=== PATIENT | female | born 1995 | race Asian ===

== ENCOUNTER 2021-06-16 06:58 | Inpatient (IN) | payer MEDICAID, SELFPAY ==
[2021-06-16] VITALS (15 sets, daily range): BP systolic 126–155; BP diastolic 47–98; PULSE 96–120; RESP 16–18; TEMP 36.9–37; O2SAT 99–100; BMI 73.4
--- NOTE | 2021-06-16 06:58 | LDADM ---
This patient, Scot Mariee, was admitted to Labor/Delivery/Recovery 105 on 06/16/21 at 06:58. Plans for labor, pain management and were discussed with patient. Patient/family oriented to hospital policies and general routines including ID bracelet, bed and alarms, visiting hours, pain management, procedures, bathroom and other care routines, personal items, smoking policy, room service/diet and guest tray routines, infant security routines, and visiting hours. Patient/Family are encouraged to report perceived risks to care and to ask questions if they do not understand what they are told or what they should do. See OBIX for further documentation.
--- NOTE | 2021-06-16 07:05 | PC.NURSE ---
Patient reports SROM occuring at home at 0230. Patient states fluid has been clear in color since time of rupture. Patient reports feeling contractions that began following SROM, patient states contractions are currently every 5 minutes apart. Patient denies any complications with .
[2021-06-16] MEDS: AMPICILLIN 2 GM/NS 100 ML 2 GM/100 ML BAG IVPB (07:53)
[2021-06-16] MEDS: LACTATED RINGERS 1,000 ML 125 ML IV CONT (07:54)
[2021-06-16 08:10] LABS: Basophils Absolute Auto 0.1 K/mm3 (0.0-0.1); Basophils Percent Auto 0.4 % (0.2-1.2); Eosinophils Percent Auto 0.2 % (0-4.4); Hematocrit 36.7 % (37.0-47.0); Hemoglobin 11.7 g/dL (12.0-15.0); Immature Granulocyte Absolute 0.35 K/mm3 (0.00-0.031); Immature Granulocyte Percent A 2.8 % (0-0.5); Lymphocytes Absolute Auto 1.44 K/mm3 (0.9-3.2); Lymphocytes Percent Auto 11.7 % (18.3-44.2); Mean Corpuscular HGB Conc 31.9 g/dl (32-36); Mean Corpuscular Hemoglobin 28.1 pg (26-34); Mean Platelet Volume 9.6 fl (7.4-10.4); Monocytes Absolute Auto 0.6 K/mm3 (0.1-0.6); Monocytes Percent Auto 5.2 % (2.6-8.5); Neutrophils Absolute Auto 9.8 K/mm3 (1.3-6.7); Neutrophils Percent Auto 79.7 % (45.5-73.1); Platelet Count Result 258 k/mm3 (150-375); Red Blood Count 4.17 M/mm3 (4.2-5.4); Red Cell Distribution Width 15.8 % (11.5-14.5); White Blood Count 12.3 K/mm3 (4.5-10.0)
[2021-06-16 08:20] LABS: Alanine Aminotransferase 15 U/L (4-35); Albumin Level 3.8 g/dL (3.5-5.1); Alkaline Phosphatase 190 U/L (38-126); Anion Gap 10 mmol/L (8-16); Aspartate Amino Transferase 21 U/L (14-36); Bilirubin,Total 0.3 mg/dL (0.2-1.3); Blood Urea Nitrogen 5 mg/dL (7-17); Calcium 9.5 mg/dL (8.4-10.2); Carbon Dioxide 20 mmol/L (22-30); Chloride 107 mmol/L (98-107); Estimated CRCL calculation 296 ml/min; Estimated Glomerular Filt Rate > 60; Glucose 125 mg/dL (65-110); Sodium 137 mmol/L (137-145)
[2021-06-16 08:52] LABS: Rapid Plasma Reagin Non-Reactive (NonReactive)
[2021-06-16 09:01] LABS: HIV 1/2 Ab P24 Ag Result Negative (Negative)
--- NOTE | 2021-06-16 09:13 | PM.IMHP ---
H&P: HPI History of Present Illness Date/Time: 06/16/21 09:13 Chief Complaint: Intrauterine at term SROM Narrative: 26 yo G1 at 38w3d who presents with SROM. Pt reports regular contractions. SHe endorses good movement. She denies any abdominal pain, fever, chills. Pt was a late transfer of care at 32 wks. overall uncomplicated. Review of Systems Cardiovascular: Cardiovascular: Denies chest pain, Denies leg edema, Denies palpitations, Denies dyspnea and Denies dyspnea on exertion Respiratory: Respiratory: Denies cough, Denies dyspnea and Denies dyspnea on exertion Gastrointestinal: Gastrointestinal: Denies abdominal pain, Denies constipation, Denies diarrhea, Denies nausea and Denies vomiting Genitourinary: Genitourinary: Denies hematuria, Denies urinary frequency, Denies dysuria, Denies pelvic pain, Denies urinary incontinence and Denies vaginal discharge Neurologic: Reports system reviewed and no additional complaints, except as documented Psychiatric: Psychiatric: Reports no additional psychiatric complaints Endocrine: Endocrine: Denies palpitations [facility] Family History Family History (Updated 06/09/21 @ 08:18 by Francisco Brady RN) Father Heart problem Diabetes mellitus Hypertension Social History Social History Smoking status: Never smoker Second hand tobacco smoke exposure: No Substance use: never Spiritual care concerns: No Meds Home Medications and Allergies Home Medications Medication Instructions Recorded Confirmed Type [id number] fum-folic ac-om3 1 pkg PO DAILY 06/16/21 06/16/21 History [Daily ] Allergies Allergy/AdvReac Type Severity Reaction Status Date / Time No Known Allergies Allergy Verified 06/16/21 07:28 Vital Signs Vital Signs - 24 hr 06/16/21 07:31 06/16/21 08:39 06/16/21 08:46 Pulse Rate 102 H 96 100 Blood Pressure 128/83 135/83 136/77 06/16/21 09:01 Pulse Rate 97 Blood Pressure 144/87 H Exam Const: General: no acute distress Eyes: EOM: EOMs intact bilaterally Neck: Neck: supple Thyroid: thyroid normal Chest: Breast/axilla inspection: normal inspection of the breasts Breast/axilla palpation: normal palpation of the breasts, normal palpation of the axillae and no axillary lymphadenopathy Resp: Effort & Inspection: normal respiratory effort Auscultation: clear to auscultation bilaterally Cardio: Rate: regular rate Rhythm: regular rhythm GI: Inspection: non-distended and other (Gravid) GI Palp: Yes Soft to palpation, No Tenderness to palpation present (GI) and No Guarding due to palpation present (GI) Auscultation: normal bowel sounds : Speculum Exam - Vagina: No vaginal bleeding OB/external & speculum: external exam normal; No vaginal bleeding Skin: General skin exam: normal color and no rashes or lesions noted Neuro: Cognition (Neuro): normal cognition Speech: normal speech Extrem: General: normal to inspection Psych: Mental Status: mental status grossly normal Affect: normal affect H&P: Results Labs Labs: Short CBC 06/16/21 Range/Units 07:50 WBC 12.3 H (4.5-10.0) K/mm3 Hgb 11.7 L (12.0-15.0) g/dL Hct 36.7 L (37.0-47.0) % Plt Count 258 (150-375) k/mm3 BMP 06/16/21 07:50 Sodium 137 Potassium 4.0 Chloride 107 Carbon Dioxide 20 L BUN 5 L Creatinine 0.40 L Glucose 125 H Calcium 9.5 Liver Function 06/16/21 Range/Units 07:50 Total Bilirubin 0.3 (0.2-1.3) mg/dL AST 21 (14-36) U/L ALT 15 (4-35) U/L Alkaline Phosphatase 190 H (38-126) U/L Albumin 3.8 (3.5-5.1) g/dL Assessment and Plan Assessment and plan (1) Supervision of high risk , unspecified, third trimester: Code(s): O09.93 - Supervision of high risk , unspecified, third trimester Status: Acute Assessment and Plan: 26 yo G1 at 38w3d SROM admit to L&D routine admission orders Rh+ GBS neg labs wnl e
[2021-06-16] MEDS: OXYTOCIN 30 UNITS/NS 500 ML 30 UNITS/500 ML BAG 999 UNITS IV CONT (11:20)
--- NOTE | 2021-06-16 11:32 | P.PCNOB_ITS ---
OB - Delivery Note Procedure Delivery date: 06/16/21 Induction method: None Delivery monitor: External FHT Route of delivery: Laceration Description: Perineal - 2nd Degree and Vaginal (r lateral) Delivery repair: vicryl Quantitative Blood Loss (ml): 359 Anesthesia type: Local Disposition: Floor [place] Baby Date of : 06/16/21 Time of : 11:16 Weeks of gestation at delivery: 38 gender: Female position: Right Occiput Anterior Placenta delivery description: Spontaneous Cord Vessel Description: 3 Vessels score one minute: 9 score five minutes: 9
[2021-06-16] MEDS: OXYTOCIN 30 UNITS/NS 500 ML 30 UNITS/500 ML BAG 125 UNITS IV CONT (11:58)
[2021-06-16] MEDS: METHYLERGONOVINE MALEATE 0.2 MG/ML VIAL (11:58)
--- NOTE | 2021-06-16 15:10 | PC.NURSE ---
Pt's came out to the desk asking for a nipple shield due to pain during nursing. Glo Scott RN, support nurse notified and will go in and see patient and talk to her about position and latch. See notes from Glo Huerta RN.
[2021-06-16] MEDS: IBUPROFEN 600 MG TABLET PO (22:53)
[2021-06-17 00:05] VITALS: BP 122/73; PULSE 115; RESP 18; TEMP 37; O2SAT 99
[2021-06-17 04:22] VITALS: BP 112/68; PULSE 96; RESP 18; TEMP 36.3; O2SAT 99
[2021-06-17 06:03] LABS: Basophils Percent Auto 0.3 % (0.2-1.2); Eosinophils Percent Auto 0.3 % (0-4.4); Hematocrit 27.5 % (37.0-47.0); Hemoglobin 8.7 g/dL (12.0-15.0); Immature Granulocyte Absolute 0.29 K/mm3 (0.00-0.031); Immature Granulocyte Percent A 2.1 % (0-0.5); Lymphocytes Absolute Auto 2.45 K/mm3 (0.9-3.2); Lymphocytes Percent Auto 18.1 % (18.3-44.2); Mean Corpuscular HGB Conc 31.6 g/dl (32-36); Mean Corpuscular Hemoglobin 28.2 pg (26-34); Mean Corpuscular Volume 89.3 fl (80-100); Mean Platelet Volume 9.9 fl (7.4-10.4); Monocytes Percent Auto 7.6 % (2.6-8.5); Neutrophils Absolute Auto 9.7 K/mm3 (1.3-6.7); Neutrophils Percent Auto 71.6 % (45.5-73.1); Platelet Count Result 235 k/mm3 (150-375); Red Blood Count 3.08 M/mm3 (4.2-5.4); Red Cell Distribution Width 15.8 % (11.5-14.5); White Blood Count 13.6 K/mm3 (4.5-10.0)
--- NOTE | 2021-06-17 07:46 | PM.OBPNVD ---
OB - PN: Subj Subjective Date/time seen: 06/17/21 07:46 Patient comments: no complaints and pain well controlled baby status: doing well and nursing well OB - PN: Obj Data Labs CBC & Chem 7: 06/17/21 04:03 06/16/21 07:50 Labs: Laboratory Results - last 24 hr 06/16/21 06/16/21 06/16/21 07:50 07:50 07:50 WBC 12.3 H RBC 4.17 L Hgb 11.7 L Hct 36.7 L MCV 88.0 MCH 28.1 MCHC 31.9 L RDW 15.8 H Plt Count 258 MPV 9.6 Immature Gran % (Auto) 2.8 H Neut % (Auto) 79.7 H Lymph % (Auto) 11.7 L [place] % (Auto) 5.2 Eos % (Auto) 0.2 Baso % (Auto) 0.4 Lymph # (Auto) 1.44 [place] # (Auto) 0.6 Eos # (Auto) 0.0 Baso # (Auto) 0.1 Abs Immat Gran (auto) 0.35 H Absolute Neuts (auto) 9.8 H Absolute Nucleated RBC 0.0 Nucleated RBC % 0.0 Sodium 137 Potassium 4.0 Chloride 107 Carbon Dioxide 20 L Anion Gap 10 BUN 5 L Creatinine 0.40 L Estim Creat Clear Calc 296 Estimated GFR > 60 Glucose 125 H Uric Acid 5.0 Calcium 9.5 Total Bilirubin 0.3 AST 21 ALT 15 Alkaline Phosphatase 190 H Total Protein 7.0 Albumin 3.8 RPR Non-reactive HIV 1&2 Ab/P24 Ag 4thGn Blood Type Antibody Screen 06/16/21 06/16/21 06/17/21 07:50 07:50 04:03 WBC 13.6 H RBC 3.08 L Hgb 8.7 L D Hct 27.5 L MCV 89.3 MCH 28.2 MCHC 31.6 L RDW 15.8 H Plt Count 235 MPV 9.9 Immature Gran % (Auto) 2.1 H Neut % (Auto) 71.6 Lymph % (Auto) 18.1 L [place] % (Auto) 7.6 Eos % (Auto) 0.3 Baso % (Auto) 0.3 Lymph # (Auto) 2.45 [place] # (Auto) 1.0 H Eos # (Auto) 0.0 Baso # (Auto) 0.0 Abs Immat Gran (auto) 0.29 H Absolute Neuts (auto) 9.7 H Absolute Nucleated RBC 0.0 Nucleated RBC % 0.0 Sodium Potassium Chloride Carbon Dioxide Anion Gap BUN Creatinine Estim Creat Clear Calc Estimated GFR Glucose Uric Acid Calcium Total Bilirubin AST ALT Alkaline Phosphatase Total Protein Albumin RPR HIV 1&2 Ab/P24 Ag 4thGn Negative Blood Type A Positive Antibody Screen Negative OB - PN A/P Plan day: 1 Plan: routine care Time Spent With Patient Time: Total time spent is greater than 50% in coordination of care (as documented) at patient's floor/unit and/or counseling patient: Time with patient: less than 15 minutes Review of Systems Review of Systems: All systems reviewed & are unremarkable except as noted in HPI and below Exam Const: General: no acute distress Eyes: General: appearance normal, both eyes and all related structures Neck: Neck: supple and no JVD Thyroid: thyroid normal Resp: Effort & Inspection: normal respiratory effort Auscultation: clear to auscultation bilaterally Cardio: Rate: regular rate Rhythm: regular rhythm GI: Inspection: non-distended GI Palp: Yes Soft to palpation, No Tenderness to palpation present (GI) and No Guarding due to palpation present (GI) Auscultation: normal bowel sounds : General: Yes bladder normal to palpation External Female Exam: normal external appearance Speculum Exam - Vagina: normal vaginal discharge and No vaginal bleeding Speculum Exam - Cervix: nontender Bimanual exam- vagina & uterus: bladder normal to palpation and No Cervical tenderness present OB/external & speculum: No vaginal bleeding Skin: General skin exam: no rashes or lesions noted Extrem: General: normal to inspection and no edema Psych: Mental Status: mental status grossly normal Affect: normal affect
[2021-06-17 08:10] VITALS: BP 106/61; PULSE 100; RESP 16; TEMP 37.2; O2SAT 98
--- NOTE | 2021-06-17 08:52 | PC.NURSE ---
On 06/16/2021 @ [id number] - [id number] Introductions were made and mother desires to breastfeed. Mother works well with encouragement holding and positioing her . Reviewed good handwashing when working with , breast, nipples and how to protect the nipples with a deep latch. Encouraged understanding the benefits of skin to skin, responding to feeding cues, frequencies of feeding 8-12 times in 24 hours (approximately 2-3 hours), duration of feedings, milk production, intake/output feeding sheet and signs of adequate intake. Discussed stimulating infant with skin to skin, hand expressing colostrum, touch and talking to to encourage eating at the breast. Reviewed positioning and alignment, supporting breast, off-centered (asymmetrical latch) and leading with the chin with big open wide gape. Infant latched optimally to the left breast in football position. Education given to mother of how to visualize suck/swallow ratios and drinking at the breast. was able to maintain latch without discomfort to mother. Nipple care reviewed with positioning and optimal latching. Resources used to facilitate learning were used from the visual handouts. Mother voiced understanding responding to feeding cues, may need to stimulating approximately 2-3 hours from the start of the last feeding, calling for assistance if the does not latch or there discomfort . Reported to primary RN.
--- NOTE | 2021-06-17 15:56 | PC.NURSE ---
[id number] Consulted with patient to assess needs related to . Mother led conversation with her experience with feeding baby so far. Reviewed good handwashing when working with infant, breast, nipples and how to protect the nipples with a deep latch. Reinforced education of the benefits of skin to skin, responding to feeding cues, frequencies of feeding 8-12 times in 24 hours (approximately 2-3 hours), duration of feedings, milk production, intake/output feeding sheet and signs of adequate intake. Discussed stimulating with skin to skin, hand expressing colostrum, touch and talking to infant to encourage eating at the breast. Reviewed positioning and alignment, supporting breast, off-centered (asymmetrical latch) and leading with the chin with big open wide gape. Mother led conversation regarding her decision to formula/bottle feed her infant. Last feeding was 2 oz. Mother states her nipples are tender with latching. Reinforced education regarding working with on optimal latching and good positioning. Resources used to facilitate learning were used from the visual handouts/mom and baby guide. Mother voiced understanding responding to feeding cues, may need to stimulating approximately 2-3 hours from the start of the last feeding, calling for assistance if the infant does not latch or there discomfort . Reported to primary RN.
[2021-06-17] MEDS: DOCUSATE SODIUM 100 MG CAPSULE PO (18:58)
[2021-06-17] MEDS: POLYSACCHARIDE IRON COMPLEX 150 MG CAPSULE PO (18:58)
[2021-06-17 20:00] VITALS: BP 130/77; PULSE 99; RESP 16; TEMP 36.3; O2SAT 98
--- NOTE | 2021-06-18 07:21 | PM.DS ---
DS: Admitting Diagnosis Discharge Date 06/18/2021 Admitting Diagnosis Term in active labor DS: Summary Hospital Course Hospital Course: Patient was admitted in active labor and underwent spontaneous vaginal delivery. Her hospital course unremarkable. She remained afebrile. She was up, voiding without difficulty, ambulating, generally without complaints Time Spent with Patient Time attestation: Total time spent providing and/or coordinating discharge services: Exam Const: General: no acute distress Eyes: General: appearance normal, both eyes and all related structures Neck: Neck: supple and no JVD Thyroid: thyroid normal Resp: Effort & Inspection: normal respiratory effort Auscultation: clear to auscultation bilaterally Cardio: Rate: regular rate Rhythm: regular rhythm GI: Inspection: non-distended GI Palp: Yes Soft to palpation, No Tenderness to palpation present (GI) and No Guarding due to palpation present (GI) Auscultation: normal bowel sounds : General: Yes bladder normal to palpation External Female Exam: normal external appearance Speculum Exam - Vagina: normal vaginal discharge and No vaginal bleeding Speculum Exam - Cervix: nontender Bimanual exam- vagina & uterus: bladder normal to palpation and No Cervical tenderness present OB/external & speculum: No vaginal bleeding Skin: General skin exam: no rashes or lesions noted Extrem: General: normal to inspection and no edema Psych: Mental Status: mental status grossly normal Affect: normal affect Discharge Plan Discharge Attending physician on discharge: Marcin Haas Discharging Clinician: Marcin Haas Patient Disposition: Home, Self-Care Activity: may shower, no driving, may drive after 2 weeks and pelvic rest Diet: heart healthy Wound Care Instructions: follow printed instructions Patient Instructions: Antibiotic Form Stand Alone Forms: General Discharge Information Follow-up/Referrals: Marcin Haas MD [Physician] - William Mccall MD [Physician] - Discharge Medications: Continued Daily [id number] mg-mcg-mg Combo Pack 1 pkg PO DAILY RF: 0 Date of admission: 06/16/21 06:58 Primary Care Provider: PHYSICIAN,MEDICAL OFFICE SPECIALIST Admitting Provider: William Mccall Attending physician on admission: William Mccall Condition: Stable
--- NOTE | 2021-06-18 07:24 | PM.OBPNVD ---
OB - PN: Subj Subjective Date/time seen: 06/18/21 07:24 Patient comments: no complaints and pain well controlled baby status: doing well OB - PN: Obj Data Labs CBC & Chem 7: 06/17/21 04:03 06/16/21 07:50 OB - PN A/P Plan day: 2 Plan: routine care, discharge home and follow up 6 weeks Time Spent With Patient Time: Total time spent is greater than 50% in coordination of care (as documented) at patient's floor/unit and/or counseling patient: Time with patient: less than 15 minutes Review of Systems Review of Systems: All systems reviewed & are unremarkable except as noted in HPI and below Exam Const: General: no acute distress Eyes: General: appearance normal, both eyes and all related structures Neck: Neck: supple and no JVD Thyroid: thyroid normal Resp: Effort & Inspection: normal respiratory effort Auscultation: clear to auscultation bilaterally Cardio: Rate: regular rate Rhythm: regular rhythm GI: Inspection: non-distended GI Palp: Yes Soft to palpation, No Tenderness to palpation present (GI) and No Guarding due to palpation present (GI) Auscultation: normal bowel sounds : General: Yes bladder normal to palpation External Female Exam: normal external appearance Speculum Exam - Vagina: normal vaginal discharge and No vaginal bleeding Speculum Exam - Cervix: nontender Bimanual exam- vagina & uterus: bladder normal to palpation and No Cervical tenderness present OB/external & speculum: No vaginal bleeding Skin: General skin exam: no rashes or lesions noted Extrem: General: normal to inspection and no edema Psych: Mental Status: mental status grossly normal Affect: normal affect
[2021-06-18 08:10] VITALS: BP 128/86; PULSE 103; RESP 18; TEMP 36.6; O2SAT 100
[2021-06-18] MEDS: POLYSACCHARIDE IRON COMPLEX 150 MG CAPSULE PO (08:31)
[2021-06-18] MEDS: DOCUSATE SODIUM 100 MG CAPSULE PO (08:31)
[2021-06-18] MEDS: MULTIVIT/MIN/PREN/FOL AC/IRON TABLET 1 TAB PO (08:32)
--- NOTE | 2021-06-18 08:52 | PC.NURSE ---
Discharge teaching provided regarding transition from colostrum to milk. d/c resources provided. Mother had in cradle hold with shallow latch visualized. Demonstrated cross cradle position and pt was able to achieve deeper more comfortable latch. Mother states she plans to continue to pump every 3 hours and supplement with formula after breastfeedings. has had 8 voids and 9 stools since . Serum bili pending at this time. Peds entering room for discharge instructions. Mother verbalized understanding of all info provided and has no questions at this time. Mother states nipples are tender and lanolin provided.
--- NOTE | 2021-06-18 10:45 | PC.NURSE ---
Patient viewed the discharge video Mother & Baby Care, The First Two Weeks . Patient was given the opportunity and encouraged to ask questions. Patient verbalized understanding of information shared and has been given the mother/baby guide for home reference.
[2021-06-19 10:20] VITALS: BP 132/89; PULSE 96; RESP 20; TEMP 37.4; O2SAT 100
== END 2021-06-18 11:38 | disposition home or self-care (01) | DRG 560 ==
LOC: ANHOB2 06-18 10:01 → ANHLDR 06-19 11:01 → ANHOB2 06-19 11:01
PROVIDERS: Obstetrics & Gynecology; Admitting Provider Student in an Organized Health Care Education/Training Program; Visit Provider Obstetrics & Gynecology
DX: O69.2XX0 Labor and delivery complicated by other cord entanglement, with compression, not applicable or unspecified (principal); O70.1 Second degree perineal laceration during delivery; Z3A.38 38 weeks gestation of pregnancy; Z37.0 Single live birth
CPT/HCPCS: 36415; 80053; 84112; 84550; 85025; 86592; 86703; 86850; 86900; 86901; A9270; G0432; J0290; J2210; J2590; J7120

== ENCOUNTER 2023-06-16 00:29 | Day surgery (SDC) | payer OTHER, SELFPAY ==
[2023-06-15 11:26] VITALS: BMI 26.6
--- NOTE | 2023-06-15 11:30 | PC.NURSE ---
Report to the Outpatient Waiting Room, entrance under the green pavilion located off [facility], at time 0630 on date 06/16/23. Planned Procedure Time: 0830. Time changes happen often and if your time is changed the preop area will call you the afternoon before. - You and your visitor will be asked to self-screen and do not enter if you have any COVID symptoms. - A mask is optional within the hospital at this time. Patients may have clear liquids (water, carbonated beverages, clear teas, apple juice) until 3 hours prior to surgery with a maximum of 20 ounces. - No food from midnight until time of surgery Take the following medications with a SIP of water the morning of surgery: NONE DO NOT STOP ANY OF YOUR OTHER PRESCRIPTION MEDICATIONS PRIOR TO SURGERY ?EXCEPT THE FOLLOWING Medications to discontinue per physician: VITAMINS Date to take last dose: NO MORE UNTIL AFTER SURGERY Please no make-up, nail belgian, hairspray, perfume, deodorant, or body powder the day of surgery. No jewelry (including any body piercings) or valuables the day of surgery, leave them at home. Please take a shower or bath the night before, or the morning of, surgery with an antibacterial soap. Wear comfortable, loose fitting clothing. - Jewelry must be removed prior to entering the operating room. Rings and piercings that are not removed may be cut off. - The hospital will not accept responsibility for valuables. - Please leave all valuables, including medications, at home the day of surgery. If you are going home after surgery, a licensed bull driver must drive you home. - NO public transportation without another adult if you receive anesthesia. - We recommend that an adult stay with you for 24 hours following discharge. - We also recommend that you do not drive, make important decision, drink alcoholic beverages, or take any drugs that were not prescribed by your health care provider for at least 24 hours after your discharge time. Follow any additional instructions given to you from your surgeon. If you or anyone in your household have experienced Covid symptoms in the past week, please notify your surgeon or the nurse liaison at the phone number below for possible testing. Telephone instructions given to GREGOR YE and asked if any additional questions and then verbalized understanding. Patient advised to call surgeon office or pre surgery nurse liaison [phone] if any additional questions.
--- NOTE | 2023-06-15 13:24 | PM.IMHP ---
H&P: HPI History of Present Illness Date/Time: 06/15/23 13:24 Chief Complaint: First trimester missed Narrative: 28-year-old 2 para 1 in her 1st trimester with serial ultrasounds showing no growth and no findings. Uterus has a sac measuring about 8 half weeks gestation which has not grown over week and fails to show presents. Risks and benefits reviewed in great detail. Suction dilatation curettage. She had all questions answered and asked to proceed PMFSH Family History Family History Father Heart problem Diabetes mellitus Hypertension Social History Social History Smoking status: Never smoker Second hand tobacco smoke exposure: No Alcohol intake: never Substance use: never Substance use type: does not use Living arrangements: with family Spiritual care concerns: No Meds Home Medications and Allergies Home Medications Medication Instructions Recorded Confirmed Type vits 75-iron 28 mg-folic 1 pkg PO DAILY 06/16/21 06/15/23 History acid 800 mcg-omega3 440 mg oral pack Allergies Allergy/AdvReac Type Severity Reaction Status Date / Time No Known Allergies Allergy Verified 06/15/23 11:26 Exam Const: General: cooperative, healthy appearing, comfortable and overweight Orientation/consciousness: oriented to person, oriented to place and oriented to time Resp: Effort & Inspection: normal respiratory effort Cardio: Rate: regular rate Rhythm: regular rhythm Heart sounds: S1 normal heart sound present and S2 normal heart sound present GI: Inspection: normal to inspection : External Female Exam: normal external appearance Speculum Exam - Vagina: normal appearance of the vagina Speculum Exam - Cervix: normal appearance of the cervix Bimanual exam- vagina & uterus: enlarged Bimanual Exam- Adnexa, other: normal adnexae Assessment and Plan Assessment and plan (1) Missed : Code(s): O02.1 - Missed Status: Acute Plan Suction dilatation curettage
--- NOTE | 2023-06-16 05:35 | WPDHPUPDATE1 ---
History and Physical Update Update Date/Time: 06/16/23 05:35 History and Physical has been reviewed, including an updated exam of the patient. There are NO changes in the patient's condition. Risks, benefits, and alternatives have been discussed and questions answered. Patient agrees to proceed with procedure.
[2023-06-16 06:45] VITALS: BP 114/71; PULSE 86; RESP 16; TEMP 36.6; O2SAT 99
[2023-06-16] MEDS: ACETAMINOPHEN 500 MG TABLET 1000 MG PO (07:20)
[2023-06-16] MEDS: LACTATED RINGERS 1,000 ML 30 ML IV CONT (07:25)
--- NOTE | 2023-06-16 07:36 | WPDANESEPPF ---
Anes - Initial Pre Proc Eval Procedure: Operation Date: 06/16/23 08:30 Proposed Procedures p Suction Dilation and Curettage - Marcin Garcia MD Date/Time: 06/16/23 07:36 Surgeon: Marcin Garcia MD Pre Op Diagnosis: Missed Ab Patient Data Age: 28 Gender: F Height: 1.63 m Weight: 70.3 kg Allergies Allergy/AdvReac Type Severity Reaction Status Date / Time No Known Allergies Allergy Verified 06/15/23 11:26 Home Medications Medication Instructions Recorded Confirmed Type vits 75-iron 28 mg-folic 1 pkg PO DAILY 06/16/21 06/15/23 History acid 800 mcg-omega3 440 mg oral pack hydrocodone 5 mg-acetaminophen 325 1 tablet PO Q4H PRN pain #14 tabs 06/16/23 Rx mg tablet Patient hx anesthesia problems: none Family hx anesthesia problems: none Results Review: All pre-operative results and documents have been reviewed as part of the pre-operative evaluation. [facility] Family History Family History Father Heart problem Diabetes mellitus Hypertension Social History Social History Smoking status: Never smoker Second hand tobacco smoke exposure: No Alcohol intake: never Substance use: never Substance use type: does not use Living arrangements: with family Spiritual care concerns: No Anes - Eval Final PreProcedure Day of Procedure 06/16/23 07:36 Patient weight: normal Heart: regular rate and rhythm Lungs: clear to auscultation Airway: Mallampati scale class II Neurological: alert and oriented Last oral intake: >/= 8 hours ASA classification: II Emergent: no Anesthetic plan: proceed Anesthesia type and monitoring: general GIVS and standard monitoring Results Review: All pre-operative results and documents have been reviewed as part of the pre-operative evaluation. Informed Consent: The patient's anesthetic plan and its attendant risks and benefits were discussed with the patient/family/POA. Questions were solicited and answers provided to the satisfaction of the patient/family/POA.
[2023-06-16] MEDS: LIDOCAINE HCL 1% LOCAL INJ 10 ML VIAL INFILTRATE (07:55)
[2023-06-16 08:01] VITALS: BP 86/51; PULSE 75; RESP 12; O2SAT 98
--- NOTE | 2023-06-16 08:02 | P.OP_ITS ---
Procedure Note - Detailed Date of Procedure 06/16/23 Pre-op Diagnosis Missed Ab Post-op Diagnosis Same Procedure Performed Dilatation curettage Surgeon Marcin Garcia MD Anesthesia MAC and Local Indications this is a 28-year-old multiparous patient with a first-trimester missed A/B Findings uterus sounded to 10cm. Tissue consistent with products consent Description of Procedure patient was prepped draped in the normal sterile fashion placed in the dorsal lithotomy position. Under excellent IV sedation weighted speculum placed in posterior fornix vagina. Anterior lip of the cervix grasped with single-tooth tenaculum. 2.5cc 1% xylocaine anesthesia placed at 2, 4, 8, 10:00 a.m. of the cervix. Uterus sounded 10cm. Serial dilatation with fragmented dilators performed followed by passage of the 10. Curved suction curette a large amount of tissue was removed. Once a good grating sound was heard the instruments were withdrawn paid. The patient was awakened went to recovery in satisfactory co ndition. All sponge, needle counts correct. There were no immediate complications. She did not require RhoGAM issues are it positive Estimated Blood Loss 150 Drains No Packing No Pathology Yes Complications No immediate complications Condition Stable Disposition PACU
[2023-06-16 08:30] VITALS: BP 103/65; PULSE 71; RESP 14; O2SAT 100
[2023-06-16 08:53] VITALS: BP 119/66; PULSE 77; RESP 14
== END 2023-06-16 08:58 | disposition home or self-care (01) ==
PROVIDERS: PCP Hospitalist; Visit Provider Obstetrics & Gynecology
PROC: (CPT 59820; principal; 2023-06-16 08:30)
DX: O02.1 Missed abortion (principal); Z79.891 Long term (current) use of opiate analgesic; Z82.49 Family history of ischemic heart disease and other diseases of the circulatory system
CPT/HCPCS: 59820; 88305; A9270; J2250; J2704; J3010; J7120

== ENCOUNTER 2024-03-15 09:29 | Outpatient (CLI) | payer OTHER, SELFPAY ==
[2024-03-16 13:43] LABS: Beta-2-Microglobulin 1.62 mg/L (< OR = 2.51)
[2024-03-18 03:13] LABS: Anti Cardio Antibody IgM 2.2 MPL-U/mL; Anti Cardiolipin Antibody IgA <2.0 APL-U/mL; Anti Cardiolipin Antibody IgG 2.1 GPL-U/mL
[2024-03-19 20:23] LABS: Lupus dRVVT Screen 33 sec (< OR = 45); PTT-LA Screen 32 sec (< OR = 40)
[2024-03-23 12:33] LABS: Reference Lab Test Name B2 Glyco IgG IgM
== END 2024-03-15 09:30 | disposition home or self-care (01) ==
LOC: ANHLAB 09:31
PROVIDERS: PCP Hospitalist; Visit Provider Obstetrics & Gynecology
DX: N96 Recurrent pregnancy loss (principal)
CPT/HCPCS: 36415; 82232; 85613; 85730; 86147; 88264

== ENCOUNTER 2025-02-06 13:41 | Outpatient (CLI) | payer OTHER, SELFPAY ==
[2025-02-06 14:47] LABS: Hematocrit 38.7 % (37.0-47.0); Hemoglobin 12.6 g/dL (12.0-15.0)
--- OUTSIDE RECORDS SUMMARY | 2025-02-07 13:02 | XMS_ITS | Clinical Summary ---
Author Organization [facility] Address [address] [address] Phone Care Team Providers Care Simulation Analyst Name Role Phone Omar Neville MD Primary Care Provider [phone] Allergies No known active allergies Medications cetirizine (ZyrTEC) 10 mg tablet Take 1 tablet (10 mg total) by mouth daily as needed for allergies 90 tablet 4 4 025 Active azelastine (OPTIVAR) 0.05 % ophthalmic solutionIndication s:Allergic Conjunctivitis Administer 1 drop into both eyes 2 (two) times a day 6 mL 1 4 Active Active Problems Problem Noted Date Diagnosed Date Influenza vaccine needed 02/13/2024 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 Assessment & Plan (02/13/2024 4:14 PM FRONT EDGER): Unclear etiology; patient has had 2 miscarriages in the past year; prior had uncomplicated One miscarriage happen after 2-1/2 months, the 2nd happened within about 10 days consistent with a biochemical Would recommend evaluation by Gynecology to determine if patient would benefit from workup Family history of heart disease in brother 06/01 Class 1 obesity due to exces s calories without serious comorbidity with body mass index (BMI) of 30.0 to 30.9 in adult 08/16/2022 Assessment & Plan (08/16/2022 12:53 PM CDT): Patient has been working on dietary changes in weight loss, down 13 lb since last visit Exercising small amount due to busy schedule Encouraged continued dietary changes Immunizations Immunization Administration Dates Next Due Influenza, Quadrivalent, Spl it, Preservative Free, Intramuscular 03/06/2022 Influenza, Trivalent, Preser vative Free, Intramuscular 02/13/2024 Influenza, Unspecified 02/11/2023(Deferr ed: Patient Refused),07/05/2022(Deferred: Patient Refused),04/04/2022(Deferred: Patient Refused),01/13/2022(Deferred: Patient Refused),04/04/2021(Deferred: Patient Refused),04/04/2021(Deferred: Patient Refused) Surgical History Surgery Date Site/Laterality Comments NO PAST SURGERIES Medical History Medical History Date Comments Kidney stone Family History Medical History Relation Name Comments Heart disease Brother 1 Early Brother 2 Adonay trujillo Heart attack Brother 2 Adonay trujillo Diabetes Father Tom trujillo Heart disease Father Tom trujillo Kidney disease Mother Luis mariee Kidney failure Mother Luis mariee 2/2 NSAID use Relation Name Status Comments Brother 1 Brother 2 Adonay trujillo Father Tom turjillo Mother Luis mariee Social History Tobacco Use Types Packs/Day Years Used Date Smoking Tobacco: Never Smokeless Tobacco: Never Tobacco Cessation:Counseling Given: Not Answered AUDIT-C Answer Date Recorded Q1: How often do you have a drink containing alcohol? Never 07/05/2022 Q2: How many drinks containi ng alcohol do you have on a typical day when you are drinking? Patient does not drink Q3: How often do you have si x or more drinks on one occasion? Never 07/05/2022 PHQ-2 Answer Date Recorded PHQ-2 Total Score (If total score is 3 or more points, staff should administer the PHQ-9) 0 02/13/2024 Comments Unknown Sex and Gender Information Value Date Recorded Sex Assigned at Not on file Legal Sex Female 9:02 AM FRONT EDGER Gender Identity Female 08/16/2022 9:39 AM CDT Sexual Orientation Not on file Obstetrics History Para Term AB IAB SAB Ectopic Multiple Livin g Live Births 2 1 1 1 Date Outcome GA Total Labor Labor/2nd/3rd Weight Sex Type Anes PTL Lucia A1 A5 Name Clin Term Comments No abnormalities during firs t , some nausea and vomiting Last Filed Vital Signs Vital Sign Reading Time Taken Comments Blood Pressure 118/82 02/13/2024 11:24 AM FRONT EDGER Pulse 67 02/13/2024 11:24 AM FRONT EDGER Temperature 36.2 C (97.1 F) 02/13/2024 11:24 AM FRONT EDGER Respiratory Rate - - Oxygen Saturation 99% 02/13/2024 11: 24 AM FRONT EDGER Inhaled Oxygen Concentration - - Weight 82.4 kg (181 lb 11.2 oz) 024 11:24 AM FRONT EDGER Height 162.6 cm (5' 4) 02/13/2024 11:2 4 AM FRONT EDGER Body Mass Index 31.19 02/13/2024 11:24 AM FRONT EDGER Plan of Treatment Health Maintenance Due Date Last Done Comments Cervical Cancer Screening 1993 DTaP/Tdap/Td Vaccine (1 - Tdap) 01/06/2004 Varicella Vaccines (1 of 2 - 13+ 2-dose series) 2006 Hepatitis B Screening 2011 HPV Vaccines (1 - 3-dose SCDM series) 01/06/2020 Covid-19 Vaccine ( season) 2024 03/06/2022, 08/11/2021, 08/17/2020, Additional history exists Influenza Vaccine (#1) 2024 02/13/2024, 2021 Depression Screening 02/12/2025 02/13/2024, 12/23/2022, 08/16/2022, Additional history exists Regular Well Visit/Exam 18-64 02/12/2025 02/13/2024 Hepatitis C Screening Completed 03/09/2024 Pneumococcal vaccine <65 Aged Out No longer eligible based on patient's age to complete this topic Procedures Procedure Name Priority Date/Time Associated Diagnosis Comments HEPATITIS C ANTIBODY Routine 03/09/2024 9:35 AM FRONT EDGER Encounter for hepatitis C screening test for low risk patient from Last 3 Months or Most Recently Relevant to Health Maintenance Results * Hepatitis C antibody Blood (03/09/2024 9:35 AM FRONT EDGER) Hep C Ab Nonreactive Nonreactive Comment: Interpretive Data Nonreactive: Antibodies to HCV not detected. Does NOT exclude the possibility of recent exposure to HCV. Equivocal: Equivocal for HCV antibodies. Supplemental molecular testing will be automatically performed to determine infection status in accordance with current CDC screening recommendations. Reactive: Positive for HCV antibodies. This may represent current or past HCV infection. Supplemental molecular testing will be automatically performed to determine current infection status in accordance with current CDC screening recommendations. Interpretive data was last revised on 2019. Blood 03/09/2024 9:35 AM FRONT EDGER 03/09/2024 3:50 PM FRONT EDGER us Omar Neville MD LAB MICROBIOLOGY - GENERA L ORDERABLES Final Result [facility] [id number] Department [place] [address] from Last 3 Months or Most Recently Relevant to Health Maintenance Insurance [facility] Care Teams Simulation Analyst Relationship Specialty Start Date End Date Omar Neville MD [address] [place] [address] PCP - General Family Medicine 07/05/22
== END 2025-02-06 13:42 | disposition home or self-care (01) ==
PROVIDERS: PCP Hospitalist; Visit Provider Obstetrics & Gynecology
DX: N92.6 Irregular menstruation, unspecified (principal)
CPT/HCPCS: 36415; 85014; 85018

== ENCOUNTER 2025-02-08 00:37 | Day surgery (SDC) | payer OTHER, SELFPAY ==
--- NOTE | 2025-02-05 12:29 | PC.NURSE ---
[facility] has started construction of its new state of the art ER which will open Spring 2026. With this, we anticipate parking may be a challenge for some our surgical patients and families. Parking spaces are limited but are available for all Surgical, obstetrics, and ER patients sharing this lot. If you arrive and find you are having a hard time finding a parking space, please note that we understand the challenges, please drive around the hospital and park near Hospital Entrance 1. When you enter this entrance, you can ask a volunteer to direct or take you back to the surgical waiting area to check in. We appreciate everyone?s understanding of these expected challenges while we build for your future. Report to the Outpatient Waiting Room, entrance under the green pavilion located off [address], at time _0730_ on date _[id number]_. Planned Procedure Time: _0930_.? Time changes happen often and if your time is changed the preop area will call you the afternoon before. - You and your visitor will be asked to self-screen and do not enter if you have any COVID symptoms. Please call surgeon if you need to reschedule. - A mask is optional within the hospital at this time. Patients may have clear liquids (water, carbonated beverages, clear teas, apple juice) until 3 hours prior to surgery with a maximum of 20 ounces. - No food from midnight until time of surgery and no smoking, or chewing tobacco (or any form of nicotine). No chewing gum, candy or mints. Take only the following medications with a SIP of water on the morning of surgery: ___None DO NOT STOP ANY OF YOUR OTHER PRESCRIPTION MEDICATIONS PRIOR TO SURGERY EXCEPT THE FOLLOWING Hold all vitamins and supplements for 3 days per anesthesiologist. Medications to discontinue per physician Date to take last dose Please no make-up, nail upper sorbian, hairspray, perfume, deodorant, or body powder the day of surgery.? No jewelry (including any body piercings) or valuables the day of surgery, leave them at home.? Please take a shower or bath the night before, or the morning of, surgery with an antibacterial soap.? Wear comfortable, loose fitting clothing.? - Jewelry must be removed prior to entering the operating room.? Rings and piercings that are not removed may be cut off. - The hospital will not accept responsibility for valuables.? - Please leave all valuables, including medications, at home the day of surgery. If you are going home after surgery, a licensed emergency vehicle driver must drive you home.? - NO public transportation without another adult if you receive anesthesia. - We recommend that an adult stay with you for 24 hours following discharge. - We also recommend that you do not drive, make important decision, drink alcoholic beverages, or take any drugs that were not prescribed by your health care provider for at least 24 hours after your discharge time. Follow any additional instructions given to you from your surgeon. Telephone instructions given to __Scot___and asked if any additional questions and then verbalized understanding. Patient advised to call surgeon office or pre surgery nurse liaison [phone] if any additional questions.
--- NOTE | 2025-02-06 07:08 | P.HP_ITS ---
H&P: HPI History of Present Illness Date/Time: 02/06/25 07:08 Chief Complaint: Bleeding Narrative: 30-year-old female with excessive heavy bleeding with thickened endometrium on ultrasound. She is admitted for hysteroscopy dilatation curettage. Risks and benefits reviewed in full. She received the ACOG handout entitled hysteroscopy as well as dilatation curettage respectively. She had all questions answered and asked to proceed Review of Systems Review of Systems: All systems reviewed & are unremarkable except as noted in HPI and below PMFSH Family History Family History Father Heart problem Diabetes mellitus Hypertension Social History Social History Smoking status: Never smoker Second hand tobacco smoke exposure: No Alcohol intake: never Substance use: never Substance use type: does not use Living arrangements: with family Spiritual care concerns: No Meds Home Medications and Allergies Home Medications ?Medication ?Instructions ?Recorded ?Confirmed ?Type No Home Medications 02/05/25 02/05/25 H istory Allergies Allergy/AdvReac Type Severity Reaction Status Date / Time No Known Allergies Allergy Verified 02/05/25 12:20 Exam Const: General: cooperative, healthy appearing, comfortable and overweight Orientation/consciousness: oriented to person, oriented to place and oriented to time Resp: Effort & Inspection: normal respiratory effort Cardio: Rate: regular rate Rhythm: regular rhythm Heart sounds: S1 normal heart sound present and S2 normal heart sound present GI: Inspection: normal to inspection : External Female Exam: normal external appearance Speculum Exam - Vagina: normal appearance of the vagina Speculum Exam - Cervix: normal appearance of the cervix Bimanual exam- vagina & uterus: non-tender Bimanual Exam- Adnexa, other: normal adnexae Assessment and Plan Assessment and plan (1) Excessive bleeding: Code(s): R58 - Hemorrhage, not elsewhere classified Status: Acute Plan Proceed with hysteroscopy/dilatation cure
--- OUTSIDE RECORDS SUMMARY | 2025-02-08 00:40 | XMS_ITS | Clinical Summary ---
Author Organization [facility] Address [address] [address] Phone Care Team Providers Care Research Biologist Name Role Phone Omar Neville MD Primary Care Provider [phone] Allergies No known active allergies Medications cetirizine [...] 02/13/2024 Assessment & Plan (02/13/2024 4:14 PM SOLAR INSTALLATION FOREMAN): Unclear etiology; patient has had 2 miscarriages [...] 1 Brother 2 Adonay trujillo Father Tom trujillo Mother Luis mariee Social History Tobacco Use [...] on file Legal Sex Female 9:02 AM SOLAR INSTALLATION FOREMAN Gender Identity Female 08/16/2022 9:39 AM CDT [...] Comments Blood Pressure 118/82 02/13/2024 11:24 AM SOLAR INSTALLATION FOREMAN Pulse 67 02/13/2024 11:24 AM SOLAR INSTALLATION FOREMAN Temperature 36.2 C (97.1 F) 02/13/2024 11:24 AM SOLAR INSTALLATION FOREMAN Respiratory Rate - - Oxygen Saturation 99% 02/13/2024 11: 24 AM SOLAR INSTALLATION FOREMAN Inhaled Oxygen Concentration - - Weight 82.4 kg (181 lb 11.2 oz) 024 11:24 AM SOLAR INSTALLATION FOREMAN Height 162.6 cm (5' 4) 02/13/2024 11:2 4 AM SOLAR INSTALLATION FOREMAN Body Mass Index 31.19 02/13/2024 11:24 AM SOLAR INSTALLATION FOREMAN Plan of Treatment Health Maintenance Due Date [...] HEPATITIS C ANTIBODY Routine 03/09/2024 9:35 AM SOLAR INSTALLATION FOREMAN Encounter for hepatitis C screening test for low risk patient from Last 3 Months or Most Recently Relevant to Health Maintenance Results * Hepatitis C antibody Blood (03/09/2024 9:35 AM SOLAR INSTALLATION FOREMAN) Hep C Ab Nonreactive Nonreactive Comment: Interpretive [...] revised on 2019. Blood 03/09/2024 9:35 AM SOLAR INSTALLATION FOREMAN 03/09/2024 3:50 PM SOLAR INSTALLATION FOREMAN us Omar Neville MD LAB MICROBIOLOGY - GENERA L ORDERABLES Final Result [facility] [id number] Department [place] [address] from Last 3 Months or Most Recently Relevant to Health Maintenance Insurance [facility] Care Teams Research Biologist Relationship Specialty Start Date End Date Omar Neville MD [address] [place] [address] PCP - General Family Medicine 07/05/22
--- NOTE | 2025-02-08 06:52 | WPDHPUPDATE1 ---
History and Physical Update Update Date/Time: 02/08/25 06:52 History and Physical has been reviewed, including an updated exam of the patient. There are NO changes in the patient's condition. Risks, benefits, and alternatives have been discussed and questions answered. Patient agrees to proceed with procedure.
[2025-02-08 07:30] VITALS: BP 131/76; PULSE 91; RESP 16; TEMP 36.8; O2SAT 100; BMI 29.9
[2025-02-08 08:32] LABS: Beta HCG Quantitative 1511.60 mIU/ML
--- NOTE | 2025-02-08 08:50 | SUR.PREOP ---
3340- Notified Dr. Barbara Garcia of patient's positive urine test and received orders for blood drive- STAT Beta HCG Quantitative. 5477- Dr. Barbara Garcia to bedside to see patient and notify patient of confirmed results from lab draw. Patient and spouse made aware procedure cancelled and to follow up with MD on Tuesday02/11/2025 in office.
== END 2025-02-08 08:58 | disposition home or self-care (01) ==
PROVIDERS: PCP Hospitalist; Visit Provider Obstetrics & Gynecology
PROC: 0U5B8ZZ Destruction of Endometrium, Via Natural or Artificial Opening Endoscopic (ICD-10-PCS; CPT 58563; principal; 2025-02-08 09:30)
DX: R93.89 Abnormal findings on diagnostic imaging of other specified body structures (principal); Z53.8 Procedure and treatment not carried out for other reasons; Z82.49 Family history of ischemic heart disease and other diseases of the circulatory system
CPT/HCPCS: 36415; 84702; 99211; G0463